=== PATIENT | female | born 2000 | race Caucasian/White ===

== ENCOUNTER 2021-07-17 02:28 | Inpatient (IN) ==
[2021-07-17] MEDS ORDERED: BUTORPHANOL 2 MG/ML VIAL IV PRN (02:53)
[2021-07-17] MEDS ORDERED: ONDANSETRON 4 MG/2 ML VIAL IV PRN (02:53)
[2021-07-17] MEDS ORDERED: FAMOTIDINE 20 MG/2 ML VIAL IV PRN (02:55)
[2021-07-17] MEDS ORDERED: LACTATED RINGERS 1,000 ML IV PRN (02:55)
[2021-07-17] MEDS ORDERED: NALOXONE 0.4 MG/ML VIAL IV PRN (02:55)
[2021-07-17] MEDS ORDERED: fentaNYL 2 MCG/ROPIV 0.2% EPID 100 ML EPIDURAL PRN (02:55)
[2021-07-17] MEDS ORDERED: CITRIC ACID/SODIUM CITRATE 30 ML UDCUP PO PRN (02:55)
[2021-07-17 03:15] LABS: Basophils % 0.2 % (0.0-0.8); Eosinophils # 0.1 10*3/uL (0.0-0.87); Eosinophils % 0.6 % (0.00-10.9); Hematocrit 36.4 VOL% (35.7-47.0); Hemoglobin 12.1 GM/DL (12.0-16.0); Immature Granulocytes % 0.9 %; Immature Granulocytes Absolute 0.13 #; Lymphocytes % 14.5 % (21.3-54.2); Mean Corpuscular HGB Conc 33.2 GM/DL (32-36); Mean Corpuscular Volume 90.3 FL (87-102); Mean Platelet Volume 9.5 FL (9.6-12.0); Monocytes % 7.5 % (1.7-12.7); Neutrophils % 76.3 % (38.7-73.9); Platelet Count 216 T/CUMM (130-400); Red Blood Count 4.03 MC/CUMM (3.8-5.5); White Blood Count 13.8 T/CUMM (4-12)
[2021-07-17] MEDS: LACTATED RINGERS 1,000 ML IV SCH ×3 (03:15→04:49)
[2021-07-17 03:22] LABS: Bacteria,Urine Moderate /HPF (Few); Bilirubin,Urine Negative (Negative); Blood, Urine Moderate mg/dL (Negative); Cystine Crystals,Urine Positive /HPF (<1); Glucose,Urine (UA) Negative (Negative); Ketones,Urine Negative (Negative); Mucus,Urine Few /LPF (Occasional); Nitrite,Urine Negative (Negative); Protein,Urine Negative; Squamous Epithelial Cell,Urine Occasional /HPF (0-10); Urine Appearance CLOUDY (Clear); Urine Color Red (Yellow); Urine Specific Gravity 1.015 (1.001-1.035); Urine Urobilinogen < 2.0 EU/DL (<2.0)
[2021-07-17] MEDS: ePHEDrine 50 MG/ML VIAL IV PRN ×2 (04:35→04:48)
[2021-07-17 05:07] LABS: Bacteria,Urine Moderate /HPF (Few); Bilirubin,Urine Negative (Negative); Blood, Urine Negative (Negative); Glucose,Urine (UA) Negative (Negative); Ketones,Urine Negative (Negative); Mucus,Urine Moderate /LPF (Occasional); Nitrite,Urine Negative (Negative); Protein,Urine Negative; RBC,Urine 1 /HPF (0-4); Squamous Epithelial Cell,Urine Occasional /HPF (0-10); Urine Appearance Slightly Hazy (Clear); Urine Color Yellow (Yellow); Urine Specific Gravity 1.016 (1.001-1.035); Urine Urobilinogen < 2.0 EU/DL (<2.0)
[2021-07-17] MEDS: OXYTOCIN/LR 20 UNIT/1,000 ML BAG IV PRN ×2 (05:45→15:45)
[2021-07-17] MEDS ORDERED: miSOPROStoL 200 MCG TABLET ONE (08:01)
[2021-07-17] MEDS ORDERED: CARBOPROST TROMETHAMINE 250 MCG/ML AMP IM ONE (08:02)
[2021-07-17] MEDS ORDERED: METHYLERGONOVINE 0.2 MG/1 ML AMP ONE (08:02)
[2021-07-17 09:14] LABS: Cord Venous Blood HCO3 19.4 MMOL/L; Cord Venous Blood PCO2 51.5 MMHG; Cord Venous Blood PO2 27.1
[2021-07-17] MEDS ORDERED: WITCH HAZEL PADS 100/JAR TOP PRN (11:50)
[2021-07-17] MEDS ORDERED: BENZOCAINE 20%/MENTHOL 0.5% SPRAY 56 GM CAN TOP PRN (11:50)
[2021-07-17] MEDS ORDERED: BISACODYL 10 MG SUPP RECTAL PRN (11:50)
[2021-07-17] MEDS ORDERED: HYDROCORTISONE 2.5% RECTAL CREAM 30 GM TUBE TOP PRN (11:50)
[2021-07-17] MEDS ORDERED: LANOLIN 50% CREAM 0.3 OZ TUBE TOP PRN (11:50)
[2021-07-17] MEDS ORDERED: ACETAMINOPHEN 325 MG TABLET PO PRN (11:50)
[2021-07-17] MEDS ORDERED: ACETAMINOPHEN/CODEINE 300-30 MG TABLET PO PRN (11:50)
[2021-07-17] MEDS ORDERED: DIPH/TET/ACEL PERT BOOSTER VACCINE 0.5 ML VIAL IM ONE (11:50)
[2021-07-17] MEDS: IBUPROFEN 800 MG TABLET PO PRN (15:41)
[2021-07-17] MEDS: DOCUSATE SODIUM 100 MG CAPSULE PO SCH (20:45)
[2021-07-17] MEDS: ACETAMINOPHEN/CODEINE 300-30 MG TABLET PO PRN (20:45)
[2021-07-18] MEDS: ACETAMINOPHEN/CODEINE 300-30 MG TABLET PO PRN (04:05)
[2021-07-18 05:52] LABS: Basophils % 0.3 % (0.0-0.8); Eosinophils # 0.1 10*3/uL (0.0-0.87); Eosinophils % 0.9 % (0.00-10.9); Hematocrit 31.5 VOL% (35.7-47.0); Hemoglobin 10.1 GM/DL (12.0-16.0); Immature Granulocytes Absolute 0.11 #; Lymphocytes % 17.9 % (21.3-54.2); Mean Corpuscular HGB Conc 32.1 GM/DL (32-36); Mean Corpuscular Volume 94.6 FL (87-102); Mean Platelet Volume 10.1 FL (9.6-12.0); Monocytes % 7.3 % (1.7-12.7); Neutrophils % 72.6 % (38.7-73.9); Platelet Count 164 T/CUMM (130-400); Red Blood Count 3.33 MC/CUMM (3.8-5.5); Red Cell Distribution Width 13.3 % (9.3-17.3); White Blood Count 11.4 T/CUMM (4-12)
[2021-07-18 06:25] LABS: Band Neutrophils 10 % (0-10); Lymphocytes 19 % (20-55); Platelet Estimate Normal; Segmented Neutrophils 66 % (50-85); Smudge Cells Few; Total Cells Counted 100
[2021-07-18 06:26] LABS: Anisocytosis Slight; Atypical Lymphocytes Few
[2021-07-18] MEDS: DOCUSATE SODIUM 100 MG CAPSULE PO SCH ×2 (08:41→20:12)
[2021-07-18] MEDS ORDERED: MULTIVITAMIN (PRENATAL) TABLET PO SCH (09:00)
[2021-07-18] MEDS: IBUPROFEN 800 MG TABLET PO PRN ×2 (12:08→20:13)
[2021-07-19] MEDS: IBUPROFEN 800 MG TABLET PO PRN (07:04)
[2021-07-19 07:55] VITALS: BP 135/69
== END 2021-07-19 11:45 | disposition home or self-care (01) | DRG 807 ==
LOC: N.LDOUT 02:28 → N.LD 02:32
PROVIDERS: ADMIT Obstetrics & Gynecology; ATTEND Obstetrics & Gynecology